=== PATIENT | male | born 1980 | race Caucasian/White ===

== ENCOUNTER 2019-04-07 18:41 | Emergency (ER) | payer OTHER, SELFPAY ==
[2019-04-07 18:47] VITALS: BP 125/75; PULSE 80; RESP 17; TEMP 36.7; O2SAT 100
--- NOTE | 2019-04-07 19:08 | ED.GENADULT ---
HPI - General Adult General Chief complaint: Skin/Abscess/Foreign Body Stated complaint: ?? 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 Patient notes he also has a family member with similar story. Patient on arrival in the room in no distress denying any pain Related Data Home Medications Medication Instructions Recorded Confirmed buspirone 10 mg PO TID 04/07/19 04/07/19 paroxetine HCl [Paxil] 40 mg PO QAM 04/07/19 04/07/19 Allergies Allergy/AdvReac Type Severity Reaction Status Date / Time diphenhydramine Allergy Rash Verified 04/07/19 18:50 [From Benadryl] Review of Systems Review of Systems: All systems reviewed & are unremarkable except as noted in HPI and below PMFSH Past Medical History Medical History (Updated 04/07/19 @ 19:15 by Jamil Jett PA-C) PTSD (post-traumatic stress disorder) Surgical History Surgical History History of orthopedic surgery Social History Social History Gender identity (if verbalized by the patient): Female Exam Narrative: Exam Narrative: GENERAL: Well-appearing, well-nourished, and in no acute distress. HEAD: Normocephalic, atraumatic. EYES: PERRLA and EOMI. ENT: Nares clear, no rhinorrhea or epistaxis. Mucous membranes moist. Oropharynx without tonsillar hypertrophy exudate or other lesions. CHEST: Clear to auscultation. No respiratory distress. No wheezes rales or rhonchi HEART: Regular rate and rhythm. No murmur heard. EXTREMITIES: Normal range of motion. No edema. SKIN: Warm, dry, no rash. NEURO: No focal deficits. Alert and oriented x3. Cranial nerves II through XII grossly intact PSYCH: Normal mood and affect. Course Course Emergency Course: Patient in the room in no distress aware of case findings treatment plan and diagnosis Vital Signs Vital signs: Vital Signs Temperature 98.1 F 04/07/19 18:47 Pulse Rate 80 04/07/19 18:47 Respiratory Rate 17 04/07/19 18:47 Blood Pressure 125/75 04/07/19 18:47 Pulse Oximetry 100 04/07/19 18:47 Temperature 98.1 F 04/07/19 18:47 Pulse Rate 80 04/07/19 18:47 Respiratory Rate 17 04/07/19 18:47 Blood Pressure 125/75 04/07/19 18:47 Pulse Oximetry 100 04/07/19 18:47 Medical Decision Making MDM Narrative Medical decision making narrative: Patient in the room in no distress will be referred to primary care Vital Signs Vital Signs: Vital Signs Temperature 98.1 F 04/07/19 18:47 Pulse Rate 80 04/07/19 18:47 Respiratory Rate 17 04/07/19 18:47 Blood Pressure 125/75 04/07/19 18:47 Pulse Oximetry 100 04/07/19 18:47 Temperature 98.1 F 04/07/19 18:47 Pulse Rate 80 04/07/19 18:47 Respiratory Rate 17 04/07/19 18:47 Blood Pressure 125/75 04/07/19 18:47 Pulse Oximetry 100 04/07/19 18:47 Discharge Plan Discharge Clinical Impression: Anal pruritus Patient Disposition: Home, Self-Care Condition: Stable Instructions: Antibiotic Form, Pinworm Infection (ED) Additional Instructions: Follow up with your primary care provider within 5-7 days. Go to ER for shortness of breath, difficulty breathing, chest pain, fever/chills, weakness, nauseau/vomitting, etc. or any other concerns. Stay well-hydrated Take any prescribed medications as directed. Follow patient education sheets If you do not have a drug allergy to tylenol or motrin and can tolerate it then take tylenol or motrin as needed for discomfort/pain. Prescript
[2019-04-07 19:43] VITALS: BP 136/82; PULSE 70; RESP 16; O2SAT 99
== END 2019-04-07 19:43 | disposition home or self-care (01) ==
PROVIDERS: Emergency Provider Emergency Medicine
DX: L29.0 Pruritus ani (principal); F43.10 Post-traumatic stress disorder, unspecified
CPT/HCPCS: 99281